=== PATIENT | female | born 1985 ===

== ENCOUNTER 2017-10-06 11:15 | Emergency (ER) | payer OTHER ==
[2017-10-06 11:19] VITALS: BMI 26.4
[2017-10-06 11:21] VITALS: RESP 16; TEMP 98.5; O2SAT 98
--- NOTE | 2017-10-06 11:49 | ED PDOC ---
HPI: Skin/Bite Injury Time Seen by Provider: 10/06/17 11:29 Chief Complaint (Nursing): Abnormal Skin Integrity Chief Complaint (Provider): Rash on the right History Per: Patient History/Exam Limitations: no limitations Onset/Duration Of Symptoms: Days Current Symptoms Are (Timing): Still Present Quality Of Symptoms: Itching Severity: Moderate Additional Complaint(s): 31 yo female with no medical problems present to ER for erythematous rash on the left upper arm x 3 days. PT states it is very itchy. Pt denies fever/ chills. Pt also reports rash on both feet which she has been using a topical antifungal cream but states it continues to come and go. Past Medical History Reviewed: Historical Data, Nursing Documentation, Vital Signs Vital Signs: Last Vital Signs Temp 98.5 F 10/06/17 11:19 Pulse 73 10/06/17 11:19 Resp 16 10/06/17 11:19 BP 102/69 10/06/17 11:19 Pulse Ox 98 10/06/17 11:19 - Medical History PMH: No Chronic Diseases - Surgical History Surgical History: No Surg Hx - Family History Family History: States: Unknown Family Hx - Living Arrangements Living Arrangements: With Family - Social History Current smoker - smoking cessation education provided: No - Immunization History Hx Tetanus Toxoid Vaccination: No Hx Influenza Vaccination: No Hx Pneumococcal Vaccination: No - Home Medications Home Medications: Ambulatory Orders Medication Instructions Recorded Fluconazole [Diflucan] 150 mg PO ONCE #2 tab 10/06/17 Hydrocortisone 1% Cream [Cortizone 30 applic TOP BID #1 tube 10/06/17 1% Cream] - Allergies Allergies/Adverse Reactions: Allergies Allergy/AdvReac Type Severity Reaction Status Date / Time No Known Allergies Allergy Verified 10/06/17 11:32 Review of Systems ROS Statement: Except As Marked, All Systems Reviewed And Found Negative Constitutional: Negative for: Fever, Chills Skin: Positive for: Rash Physical Exam - Reviewed Nursing Documentation Reviewed: Yes Vital Signs Reviewed: Yes - Physical Exam Appears: Positive for: Well, Non-toxic, No Acute Distress Head Exam: Positive for: ATRAUMATIC, NORMAL INSPECTION, NORMOCEPHALIC Skin: Positive for: Warm. Negative for: Normal Color (1: Erythematous blanching rash on the right uppe arm 2: dry cracked erythemaotous skin on bilateral feet and between dows with fissues ) Eye Exam: Positive for: Normal appearance ENT: Positive for: Normal ENT Inspection Neck: Positive for: Normal, Painless ROM Cardiovascular/Chest: Positive for: Regular Rate, Rhythm Respiratory: Positive for: Normal Breath Sounds. Negative for: Accessory Muscle Use, Respiratory Distress Back: Positive for: Normal Inspection Extremity: Positive for: Normal ROM Neurologic/Psych: Positive for: Alert, Oriented - ECG O2 Sat by Pulse Oximetry: 98 Medical Decision Making Medical Decision Making: Discussed oral medications for fungal rash on feels. PT reports using the cream twice a day for 1 month without significant improvement. Also discussed follow-up with dermatology for both rashes if they do not improve. Disposition - Clinical Impression Clinical Impression: Dermatitis, Athletes foot Counseled Patient/Family Regarding: Diagnosis, Need For Followup, Rx Given - Disposition Disposition: Routine/Home Disposition Time: 11:48 Condition: STABLE Prescriptions: Fluconazole [Diflucan] 150 mg PO ONCE #2 tab Hydrocortisone 1% Cream [Cortizone 1% Cream] 30 applic TOP BID #1 tube Instructions: Athlete's Foot
[2017-10-06 12:11] VITALS: BP 122/78; PULSE 76
== END 2017-10-06 12:09 | disposition home or self-care (01) ==
LOC: H.ER 11:15
DX: L30.9 Dermatitis, unspecified (principal); B35.3 Tinea pedis

== ENCOUNTER 2018-05-26 08:25 | Emergency (ER) | payer OTHER ==
[2018-05-26 08:25] VITALS: BMI 26.4
[2018-05-26 08:28] VITALS: TEMP 98.5; O2SAT 100
--- NOTE | 2018-05-26 10:35 | ED PDOC ---
HPI: Abdomen Time Seen by Provider: 05/26/18 09:00 Chief Complaint (Nursing): Abdominal Pain Chief Complaint (Provider): Abdominal Pain History Per: Patient History/Exam Limitations: no limitations Onset/Duration Of Symptoms: Days (3x) Current Symptoms Are (Timing): Still Present Location Of Pain/Discomfort: Suprapubic Quality Of Discomfort: "Pain" Associated Symptoms: denies: Fever, Vomiting, Diarrhea Additional Complaint(s): 32 year old female presents to the ED for an evaluation of left-sided suprapubic pain onset for 3 days. pt is (1 miscarraige) Patient had her last period on March 23 and she is currently 7 weeks . Otherwise, patient denies vomiting, diarrhea, fever, dysuria or vaginal bleeding. PMD: no family provider Abnormal Vaginal Bleeding: No Last Menstral Period: 03/23/18 : 4 Para: 2 Miscarriage: 1 Past Medical History Reviewed: Historical Data, Nursing Documentation, Vital Signs Vital Signs: Last Vital Signs Temp 98.5 F 05/26/18 08:27 Pulse 80 05/26/18 08:27 Resp 18 05/26/18 08:27 BP 123/72 05/26/18 08:27 Pulse Ox 100 05/26/18 08:27 - Medical History PMH: No Chronic Diseases - Surgical History Surgical History: No Surg Hx - Family History Family History: States: Unknown Family Hx - Social History Current smoker - smoking cessation education provided: No Alcohol: None Drugs: Denies - Immunization History Hx Tetanus Toxoid Vaccination: No Hx Influenza Vaccination: No Hx Pneumococcal Vaccination: No - Home Medications Home Medications: Ambulatory Orders Medication Instructions Recorded Fluconazole [Diflucan] 150 mg PO ONCE #2 tab 10/06/17 RX: Hydrocortisone 1% Cream 30 applic TOP BID #1 tube 10/06/17 [Cortizone 1% Cream] - Allergies Allergies/Adverse Reactions: Allergies Allergy/AdvReac Type Severity Reaction Status Date / Time No Known Allergies Allergy Verified 10/06/17 11:32 Review of Systems ROS Statement: Except As Marked, All Systems Reviewed And Found Negative Constitutional: Negative for: Fever, Chills Gastrointestinal: Positive for: Abdominal Pain. Negative for: Nausea, Vomiting, Diarrhea Genitourinary Female: Negative for: Dysuria, Vaginal Bleeding Physical Exam - Reviewed Nursing Documentation Reviewed: Yes Vital Signs Reviewed: Yes - Physical Exam Appears: Positive for: Well, Non-toxic, No Acute Distress Head Exam: Positive for: ATRAUMATIC, NORMAL INSPECTION, NORMOCEPHALIC Skin: Positive for: Normal Color, Warm, Dry Eye Exam: Positive for: EOMI, Normal appearance, PERRL ENT: Positive for: Normal ENT Inspection Neck: Positive for: Normal, Painless ROM, Supple Cardiovascular/Chest: Positive for: Regular Rate, Rhythm. Negative for: Murmur Respiratory: Positive for: Normal Breath Sounds. Negative for: Decreased Breath Sounds, Respiratory Distress Gastrointestinal/Abdominal: Positive for: Tenderness (mild left side suprapubic ) Back: Positive for: Normal Inspection Extremity: Positive for: Normal ROM. Negative for: Tenderness, Pedal Edema, Deformity Neurologic/Psych: Positive for: Alert, Oriented (x3). Negative for: Mo tor/Sensory Deficits - Laboratory Results Result Diagrams: 05/26/18 11:14 05/26/18 11:14 - ECG O2 Sat by Pulse Oximetry: 100 (RA) Pulse Ox Interpretation: Normal Medical Decision Making Medical Decision Making: Time: 1021 Impression: Abdominal Pain/pelvic pain in preganncy, rule out UTI, ectopic Plan: --BBK type and screen --Beta-HCG, Quantitative --CMP --CBC w/ differential --Urine C&S --Urinalysis --Reevaluation 1201 PROCEDURE: First trimester ultrasound HISTORY: left sided pelvic pain COMPARISON: None TECHNIQUE: Standard protocol for this study/examination. FINDINGS: LMP: 04/04/2018 Prior examinations from the current : TECHNIQUE: Real-time 2D imaging, duplex and color Doppler. FINDINGS: Cardiac activity: Present Rate: 165 BPM Measurements: [place] [employer] rump length: 1.72 cm Gestational age based on CRL 8 weeks 1 day Gestational age 7 weeks 3 days based on gestational sac measurement 2.66 cm Gestational age derived from LMP: 7 weeks 3 days AJ based on LMP: 01/09/2019 AJ based on biometry: 01/06/2019 Gestational concordance documented Yolk sac identified Cervix: No Cervical abnormalities: Negative examination for cervical dilatation or effacement. Closed cervix measuring 5.16 cm Subchorionic hemorrhage: None UTERUS: 8.5 x 6.5 x 10.6 cm. ADNEXA: Right: 2 x 2.9 x 3.1 cm. Cyst measures 2 x 2.7 cm normal Doppler arterial waveform documented. Left: 2.3 x 2.7 x 3.3 cm. Normal Doppler arterial waveform documented Fluid in the cul-de-sac: None IMPRESSION: 7 weeks 6 days live intrauterine gestation. Gestational concordance documented. Patients hematology presents she is slightly anemia, BUN and AST is elevated. She is Rh + instructed her to take vitamins with iron pt has no primary early childhood educator aide , will refer her Patient will be discharged home. states she feels improved at this time. Counseling was provided and all questions were answered regarding diagnosis and need for follow up with gynecology clinic. There is agreement to discharge plan. Return if symptoms persist or worsen. Scribe Attestation: Documented by Wood Akins, acting as a scribe for Kelsi Baldwin MD. Provider Scribe Attestation: All medical record entries made by the Scribe were at my direction and personally dictated by me. I have reviewed the chart and agree that the record accurately reflects my personal performance of the history, physical exam, medical decision making, and the department course for this patient. I have also personally directed, reviewed, and agree with the discharge instructions and disposition. Disposition - Clinical Impression Clinical Impression: Pelvic pain affecting - Patient ED Disposition Is Patient to be Admitted: No Counseled Patient/Family Regarding: Studies Performed, Diagnosis, Need For Followup - Disposition Referrals: [facility] [Outside] [facility] [Outside] Disposition: Routine/Home Disposition Time: 12:15 Condition: IMPROVED Additional Instructions: follow up with the PRODUCTION CLERKS SUPERVISOR in 2 days take vitamins daily return to the ED with any worsening or concerning symptoms Instructions: Round Ligament Pain Forms: [employer] (Slovenian)
[2018-05-26 11:26] LABS: BASO # 0.1 K/uL (0.0-0.2); BASO % 1.3 % (0.0-2.0); EOS # 0.2 K/uL (0.0-0.7); EOS % 2.6 % (0.0-4.0); HEMOGLOBIN 11.3 g/dL (12.0-16.0); LYMPH # 2.2 K/uL (1.0-4.3); MEAN CELL VOLUME 77.6 fl (81.0-99.0); MEAN CORPUSCULAR HGB CONC 32.3 g/dL (33.0-37.0); MEAN PLATELET VOLUME 8.2 fl (7.2-11.7); MONO # 0.7 K/uL (0.0-0.8); MONO % 9.4 % (0.0-10.0); NEUT # 4.2 K/uL (1.8-7.0); NEUT % 56.7 % (50.0-75.0); NRBC % 0.1 % (0.0-0.0); RBC 4.53 Mil/uL (3.80-5.20); RED CELL DISTRIBUTION WIDTH 16.3 % (11.5-14.5); WHITE BLOOD COUNT 7.4 K/uL (4.8-10.8)
[2018-05-26 11:33] LABS: ALB/GLOB RATIO 1.1 (1.0-2.1); ALT/SGPT 21 U/L (9-52); AST/SGOT 42 U/L (14-36); BLOOD UREA NITROGEN 18 mg/dl (7-17); CALCIUM 9.1 mg/dL (8.4-10.2); GFR NON-AFRICAN AMERICAN > 60
[2018-05-26 11:42] LABS: SQUAMOUS EPITHIAL 14 /hpf (0-5); URINE BACTERIA RARE (<OCC); URINE BILIRUBIN NEGATIVE (NEGATIVE); URINE BLOOD NEGATIVE (NEGATIVE); URINE CLARITY CLOUDY (Clear); URINE COLOR YELLOW (YELLOW); URINE GLUCOSE (UA) NEG (NEGATIVE); URINE LEUKOCYTE ESTERASE NEG Leu/uL (Negative); URINE PROTEIN NEGATIVE (NEGATIVE); URINE UROBILINOGEN 0.2-1.0 mg/dL (0.2-1.0)
--- NOTE | 2018-05-26 12:04 | US ---
Date of service: 05/26/2018 PROCEDURE: First trimester ultrasound HISTORY: left sided pelvic pain COMPARISON: None TECHNIQUE: Standard protocol for this study/examination. FINDINGS: LMP: 04/04/2018 Prior examinations from the current : TECHNIQUE: Real-time 2D imaging, duplex and color Doppler. FINDINGS: Cardiac activity: Present Rate: 165 BPM Measurements: [place] rump length: 1.72 cm Gestational age based on CRL 8 weeks 1 day Gestational age 7 weeks 3 days based on gestational sac measurement 2.66 cm Gestational age derived from LMP: 7 weeks 3 days AJ based on LMP: 01/09/2019 AJ based on biometry: 01/06/2019 Gestational concordance documented Yolk sac identified Cervix: No Cervical abnormalities: Negative examination for cervical dilatation or effacement. Closed cervix measuring 5.16 cm Subchorionic hemorrhage: None UTERUS: 8.5 x 6.5 x 10.6 cm. ADNEXA: Right: 2 x 2.9 x 3.1 cm. Cyst measures 2 x 2.7 cm normal Doppler arterial waveform documented. Left: 2.3 x 2.7 x 3.3 cm. Normal Doppler arterial waveform documented Fluid in the cul-de-sac: None IMPRESSION: 7 weeks 6 days live intrauterine gestation. Gestational concordance documented.
[2018-05-26 12:44] VITALS: BP 110/70; PULSE 82; RESP 15
== END 2018-05-26 12:53 | disposition home or self-care (01) ==
LOC: H.ER 08:25
DX: O26.899 Other specified pregnancy related conditions, unspecified trimester (principal); D64.9 Anemia, unspecified

== ENCOUNTER 2018-06-18 08:29 | Observation (INO) | payer OTHER, SELFPAY ==
[2018-06-18 08:37] VITALS: BMI 28.5
[2018-06-18] MEDS ORDERED: Sodium Chloride 0.9% 1,000 ML IV STA (09:01)
--- NOTE | 2018-06-18 09:11 | ED PDOC ---
History of Present Illness History of Present Illness: 32yo female, EGA of 10 weeks, A1, comes to ER reporting fever, vomiting, and bodyaches x 1 day. She also reports associated fatigue, malaise, cough, diarrhea, and lower back pain. Patient denies any urinary symptoms. No additional medical complaints. PMD: None HPI: Influenza Time Seen by Provider: 06/18/18 08:48 Chief Complaint: Flu-like Symptoms Chief Complaint (Provider): Flu History Per: Patient Exam Limitations: no limitations Have you had recent travel within the past 21 days to any of: No Symptoms include: fever, bodyaches, sore throat, cough Sick Contacts (Context): None Hx Influenza Vaccination: No Risk factors for flu complications: Yes: Past Medical History Reviewed: Historical Data, Nursing Documentation, Vital Signs Vital Signs: Last Vital Signs Temp 102 F H 06/18/18 08:36 Pulse 140 H 06/18/18 08:36 Resp 18 06/18/18 08:36 BP 124/75 06/18/18 08:36 Pulse Ox 99 06/18/18 08:36 - Medical History PMH: No Chronic Diseases - Surgical History Surgical History: No Surg Hx - Family History Family History: States: No Known Family Hx - Immunization History Hx Tetanus Toxoid Vaccination: No Hx Influenza Vaccination: No Hx Pneumococcal Vaccination: No - Home Medications Home Medications: Ambulatory Orders Medication Instructions Recorded Ferrous Sulfate [Feosol] 325 mg PO DAILY 06/18/18 Acetaminophen [Tylenol 325mg tab] 650 mg PO Q6 PRN tab 06/19/18 Ferrous Sulfate [Feosol] 325 mg PO DAILY tab 06/19/18 Oseltamivir Cap [Tamiflu Cap] 75 mg PO BID #7 capsule 06/19/18 Multivit/Folic Acid/I 1 tab PO DAILY #30 tab 06/19/18 [] - Allergies Allergies/Adverse Reactions: Allergies Allergy/AdvReac Type Severity Reaction Status Date / Time No Known Allergies Allergy Verified 10/06/17 11:32 Review of Systems ROS Statement: Except As Marked, All Systems Reviewed And Found Negative Constitutional: Positive for: Fever, Chills, Malaise Respiratory: Positive for: Cough. Negative for: Sputum Gastrointestinal: Positive for: Vomiting, Abdominal Pain, Diarrhea Musculoskeletal: Positive for: Back Pain Neurological: Negative for: Weakness, Numbness Physical Exam - Reviewed Nursing Documentation Reviewed: Yes Vital Signs Reviewed: Yes (febrile) - Physical Exam Appears: Positive for: Non-toxic, Uncomfortable Head Exam: Positive for: ATRAUMATIC, NORMAL INSPECTION, NORMOCEPHALIC Skin: Positive for: Normal Color, Warm, Dry Eye Exam: Positive for: EOMI, Normal appearance, PERRL ENT: Negative for: Pharyngeal Erythema, Tonsillar Exudate, Tonsillar Swelling Neck: Positive for: Normal, Painless ROM, Supple Cardiovascular/Chest: Positive for: Regular Rate, Rhythm, Tachycardia Respiratory: Positive for: CNT, Normal Breath Sounds Gastrointestinal/Abdominal: Positive for: Soft, Tenderness (diffuse tenderness) Back: Positive for: Other (para-lumbar tenderness). Negative for: L CVA Tenderness, R CVA Tenderness Extremity: Positive for: Normal ROM. Negative for: Pedal Edema Neurological/Psych: Positive for: Awake, Alert, Normal Tone Medical Decision Making Medical Decision Making: Impression: Fever, bodyaches, malaise, cough and abdominal pain Differential: Influenza, gastroenteritis, less likely UTI Plan: -- UDip -- IV fluids -- Labs -- Tylenol 650mg PO -- Zofran 4mg IV -- Rapid flu 0951 Patient flu A positive; first dose tamiflu given. 1230 Labs reviewed, patient with hypokalemia, K-Dur 30meq PO ordered 1430 Patient with persistent tachycardia, despite fluids and resolution of fever. Case discussed with Dr. Lofton, patient to be admitted for observation. Plan of admission discussed with patient, who is agreeable. Scribe Attestation: Documented by Vivian Escamilla, acting as a scribe for Kennedi Munson MD. Provider Scribe Attestation: All medical record entries made by the Scribe were at my direction and personally dictated by me. I have reviewed the chart and agree that the record accurately reflects my personal performance of the history, physical exam, medical decision making, and the department course for this patient. I have also personally directed, reviewed, and agree with the discharge instructions and disposition. - Laboratory Results Result Diagrams: 06/19/18 05:10 06/19/18 05:10 - ECG O2 Sat by Pulse Oximetry: 99 Disposition - Clinical Impression Clinical Impression: Influenza, - Patient ED Disposition Is Patient to be Admitted: Yes Discussed With DrHarshal: Vicente Lofton Doctor Will See Patient In The: Hospital Counseled Patient/Family Regarding: Studies Performed, Diagnosis - Disposition Disposition Time: 14:41 Condition: FAIR - Pt Status Changed To: Hospital Disposition Of: Observation - POA Present On Arrival: None
[2018-06-18 09:36] LABS: BASO % 0.5 % (0.0-2.0); EOS % 0.4 % (0.0-4.0); HEMOGLOBIN 11.3 g/dL (12.0-16.0); LYMPH # 0.8 K/uL (1.0-4.3); LYMPH % 9.3 % (20.0-40.0); MEAN CELL VOLUME 75.9 fl (81.0-99.0); MEAN CORPUSCULAR HGB CONC 32.9 g/dL (33.0-37.0); MEAN PLATELET VOLUME 7.4 fl (7.2-11.7); MONO # 0.5 K/uL (0.0-0.8); MONO % 6.2 % (0.0-10.0); NEUT # 7.1 K/uL (1.8-7.0); NEUT % 83.6 % (50.0-75.0); NRBC % 0.1 % (0.0-0.0); PLATELET COUNT 394 K/uL (130-400); RBC 4.53 Mil/uL (3.80-5.20); RED CELL DISTRIBUTION WIDTH 16.8 % (11.5-14.5); WHITE BLOOD COUNT 8.5 K/uL (4.8-10.8)
[2018-06-18 09:51] LABS: ALB/GLOB RATIO 1.1 (1.0-2.1); ALBUMIN 4.1 g/dL (3.5-5.0); ALT/SGPT 23 U/L (9-52); AST/SGOT 22 U/L (14-36); BLOOD UREA NITROGEN 11 mg/dl (7-17); GFR NON-AFRICAN AMERICAN > 60; LIPASE 59 U/L (23-300)
[2018-06-18] MEDS ORDERED: Dextrose 5%/0.45% NS 1,000 ML IV SCH (10:45)
[2018-06-18 12:15] LABS: BANDS 4 % (0-2); BASOPHIL 1 % (0-2); LYMPHOCYTE 10 % (20-50); MONOCYTE 5 % (0-10); NEUTROPHIL 80 % (42-75); TOTAL CELLS COUNTED 100
[2018-06-18 12:17] LABS: ANISOCYTOSIS SLIGHT; HYPOCHROMIC SLIGHT; MICROCYTOSIS SLIGHT; PLATELET ESTIMATE NORMAL (NORMAL); TOXIC GRANULATION PRESENT
[2018-06-18] MEDS ORDERED: Potassium Chloride 20 mEq ER Tab PO ONE ×2 (12:37→14:12)
--- NOTE | 2018-06-18 15:19 | CP.PCM.HP ---
<Aldo Triana - Last Filed: 06/18/18 15:39> History of Present Illness - History of Present Illness History of Present Illness: 32 yo F at 11 weeks GA with no sig pmhx presents to the ED with Fever. Since yesterday morning, she has experienced fever measuring 104. Associated with vomiting x 4 (clear, nonbloody), complete body aches, diarrhea (x1 this AM), Rhinorrhea: clear, nonproductive cough. Sick contact: son, who has been unwell for 1 week. No recent travel. She tried taking advil for fever. Denies: vaginal bleed, contractions, loss of fluid, movement, dysuria, or increased urinary frequency. PMD: none CEO & FOUNDER: none Surg: none Soc: Denies smoking, alcohol, illicit drugs Famhx: DM, HTN Rx: Tylenol, PNV NKDA Present on Admission - Present on Admission Any Indicators Present on Admission: No History of Uncontrolled Diabetes: No Urinary Catheter: No Review of Systems - Constitutional Constitutional: Fever, Weakness - Cardiovascular Cardiovascular: absent: Chest Pain - Respiratory Respiratory: Cough - Genitourinary Genitourinary: absent: Dysuria, Hematuria, Urinary Frequency - Reproductive: Female Reproductive:Female: Amenorrhea - Musculoskeletal Additional comments: generalized body aches - Neurological Neurological: absent: Abnormal Gait Past Patient History - Past Social History Smoking Status: Never Smoked Alcohol: None Drugs: Denies Home Situation {Lives}: With Family - GENITOURINARY/GYNECOLOGICAL LMP:: 04/02/2019 : 4 Para: 2 Termination of : 1 (SAB) - PSYCHIATRIC Hx Substance Use: No - SURGICAL HISTORY Hx Surgeries: No - ANESTHESIA Hx Anesthesia: No Meds Allergies/Adverse Reactions: Allergies Allergy/AdvReac Type Severity Reaction Status Date / Time No Known Allergies Allergy Verified 10/06/17 11:32 Physical Exam - Constitutional Appears: No Acute Distress - Eye Exam Eye Exam: EOMI - ENT Exam ENT Exam: Mucous Membranes Moist - Respiratory Exam Respiratory Exam: Clear to Auscultation Bilateral, NORMAL BREATHING PATTERN. absent: Wheezes - Cardiovascular Exam Cardiovascular Exam: Tachycardia, +S1, +S2 - GI/Abdominal Exam GI & Abdominal Exam: Normal Bowel Sounds, Soft. absent: Tenderness - Neurological Exam Neurological exam: Alert, CN II-XII Intact, Oriented x3 - Psychiatric Exam Psychiatric exam: Normal Affect, Normal Mood Results - Vital Signs Recent Vital Signs: Last Vital Signs Temp 99.5 F 06/18/18 14:32 Pulse 123 H 06/18/18 14:32 Resp 18 06/18/18 14:32 BP 110/63 06/18/18 14:32 Pulse Ox 99 06/18/18 14:49 - Labs Result Diagrams: 06/18/18 09:15 06/18/18 09:15 Labs: Laboratory Results - last 24 hr 06/18/18 06/18/18 06/18/18 09:15 09:15 09:15 WBC 8.5 RBC 4.53 Hgb 11.3 L Hct 34.4 MCV 75.9 L MCH 25.0 L MCHC 32.9 L RDW 16.8 H Plt Count 394 D MPV 7.4 Neut % (Auto) 83.6 H Lymph % (Auto) 9.3 L [place] % (Auto) 6.2 Eos % (Auto) 0.4 Baso % (Auto) 0.5 Neut # (Auto) 7.1 H Lymph # (Auto) 0.8 L [place] # (Auto) 0.5 Eos # (Auto) 0.0 Baso # (Auto) 0.0 Neutrophils % (Manual) 80 H Band Neutrophils % 4 H Lymphocytes % (Manual) 10 L Monocytes % (Manual) 5 Basophils % (Manual) 1 Toxic Granulation Present Platelet Estimate Normal Hypochromasia (manual) Slight Anisocytosis (manual) Slight Microcytosis (manual) Slight Sodium 136 Potassium 3.5 L Chloride 103 Carbon Dioxide 21 L Anion Gap 16 BUN 11 Creatinine 0.5 L Est GFR ( Amer) > 60 Est GFR (Non-Af Amer) > 60 Random Glucose 103 Calcium 9.0 Total Bilirubin 0.4 AST 22 ALT 23 Alkaline Phosphatase 69 Total Protein 7.8 Albumin 4.1 Globulin 3.7 Albumin/Globulin Ratio 1.1 Lipase 59 Influenza Typ A,B (EIA) Pos for influenza a H Assessment & Plan - Assessment and Plan (Free Text) Assessment: 32 yo F at 11 weeks GA with no sig pmhx presents to the ED with Fever. Plan: Influenza A -Admit to tele -monitoring and evaluation advisor -IVF: LR 125 mls/hr -Anti pyretics: Tylenol prn -PNV -OB: Dr. Fishman: further recs appreciated -Continue Tamiflu 75 mg BID total of 5 days -Monitor vitals -f/u AM labs -11.0 weeks -OB: Dr. Fishman: further recs appreciated -f/u UA DVT Prophylaxis -SCD Case and plan d/w Dr. Rolly Triana MD PGY2 <Vicente Lofton D - Last Filed: 06/18/18 17:10> Results - Vital Signs Recent Vital Signs: Last Vital Signs Temp 101.6 F H 06/18/18 15:45 Pulse 129 H 06/18/18 15:41 Resp 18 06/18/18 15:41 BP 119/68 06/18/18 15:41 Pulse Ox 98 06/18/18 15:41 - Labs Result Diagrams: 06/18/18 09:15 06/18/18 09:15 Labs: Laboratory Results - last 24 hr 06/18/18 06/18/18 06/18/18 09:15 09:15 09:15 WBC 8.5 RBC 4.53 Hgb 11.3 L Hct 34.4 MCV 75.9 L MCH 25.0 L MCHC 32.9 L RDW 16.8 H Plt Count 394 D MPV 7.4 Neut % (Auto) 83.6 H Lymph % (Auto) 9.3 L [place] % (Auto) 6.2 Eos % (Auto) 0.4 Baso % (Auto) 0.5 Neut # (Auto) 7.1 H Lymph # (Auto) 0.8 L [place] # (Auto) 0.5 Eos # (Auto) 0.0 Baso # (Auto) 0.0 Neutrophils % (Manual) 80 H Band Neutrophils % 4 H Lymphocytes % (Manual) 10 L Monocytes % (Manual) 5 Basophils % (Manual) 1 Toxic Granulation Present Platelet Estimate Normal Hypochromasia (manual) Slight Anisocytosis (manual) Slight Microcytosis (manual) Slight Sodium 136 Potassium 3.5 L Chloride 103 Carbon Dioxide 21 L Anion Gap 16 BUN 11 Creatinine 0.5 L Est GFR ( Amer) > 60 Est GFR (Non-Af Amer) > 60 Random Glucose 103 Calcium 9.0 Total Bilirubin 0.4 AST 22 ALT 23 Alkaline Phosphatase 69 Total Protein 7.8 Albumin 4.1 Globulin 3.7 Albumin/Globulin Ratio 1.1 Lipase 59 Urine Color Urine Clarity Urine pH Ur Specific [place] Urine Protein Urine Glucose (UA) Urine Ketones Urine Blood Urine Nitrate Urine Bilirubin Urine Urobilinogen Ur Leukocyte Esterase Urine RBC (Auto) Urine Microscopic WBC Ur Squamous Epith Cells Urine Bacteria Influenza Typ A,B (EIA) Pos for influenza a H 06/18/18 16:10 WBC RBC Hgb Hct MCV MCH MCHC RDW Plt Count MPV Neut % (Auto) Lymph % (Auto) [place] % (Auto) Eos % (Auto) Baso % (Auto) Neut # (Auto) Lymph # (Auto) [place] # (Auto) Eos # (Auto) Baso # (Auto) Neutrophils % (Manual) Band Neutrophils % Lymphocytes % (Manual) Monocytes % (Manual) Basophils % (Manual) Toxic Granulation Platelet Estimate Hypochromasia (manual) Anisocytosis (manual) Microcytosis (manual) Sodium Potassium Chloride Carbon Dioxide Anion Gap BUN Creatinine Est GFR ( Amer) Est GFR (Non-Af Amer) Random Glucose Calcium Total Bilirubin AST ALT Alkaline Phosphatase Total Protein Albumin Globulin Albumin/Globulin Ratio Lipase Urine Color Yellow Urine Clarity Cloudy Urine pH 6.0 Ur Specific [place] 1.029 Urine Protein 100 Urine Glucose (UA) 50 Urine Ketones 80 Urine Blood Negative Urine Nitrate Negative Urine Bilirubin Negative Urine Urobilinogen 0.2-1.0 Ur Leukocyte Esterase Neg Urine RBC (Auto) 3 Urine Microscopic WBC 3 Ur Squamous Epith Cells 7 H Urine Bacteria Rare Influenza Typ A,B (EIA) Attending/Attestation - Attestation I have personally seen and examined this patient.: Yes I have fully participated in the care of the patient.: Yes I have reviewed all pertinent clinical information: Yes Notes (Text): 06/18/18 17:07 Patient seen and examined with resident. Case discussed and agreed with assessment and plan. Patient is a 32 yo female on her 10 weeks of gestation who manifested with URI symptoms and turned out positive influenza A. Patient placed on observation because of dehydration and tachycardia.
[2018-06-18 16:46] LABS: SQUAMOUS EPITHIAL 7 /hpf (0-5); URINE BACTERIA RARE (<OCC); URINE BILIRUBIN NEGATIVE (NEGATIVE); URINE BLOOD NEGATIVE (NEGATIVE); URINE CLARITY CLOUDY (Clear); URINE COLOR YELLOW (YELLOW); URINE GLUCOSE (UA) 50 mg/dL (NEGATIVE); URINE LEUKOCYTE ESTERASE NEG Leu/uL (Negative); URINE PROTEIN 100 mg/dL (NEGATIVE); URINE UROBILINOGEN 0.2-1.0 mg/dL (0.2-1.0)
[2018-06-18] MEDS: Lactated Ringer's 1,000 ML IV SCH (17:16)
[2018-06-19] MEDS: Lactated Ringer's 1,000 ML IV SCH ×2 (00:47→09:20)
[2018-06-19 05:47] LABS: BASO % 0.8 % (0.0-2.0); EOS # 0.1 K/uL (0.0-0.7); EOS % 1.4 % (0.0-4.0); HEMOGLOBIN 10.5 g/dL (12.0-16.0); LYMPH # 1.4 K/uL (1.0-4.3); LYMPH % 22.8 % (20.0-40.0); MEAN CELL VOLUME 76.8 fl (81.0-99.0); MEAN CORPUSCULAR HEMOGLOBIN 24.9 pg (27.0-31.0); MEAN CORPUSCULAR HGB CONC 32.4 g/dL (33.0-37.0); MEAN PLATELET VOLUME 7.4 fl (7.2-11.7); MONO # 0.6 K/uL (0.0-0.8); MONO % 10.3 % (0.0-10.0); NEUT # 4.1 K/uL (1.8-7.0); NEUT % 64.7 % (50.0-75.0); NRBC % 0.1 % (0.0-0.0); RBC 4.23 Mil/uL (3.80-5.20); RED CELL DISTRIBUTION WIDTH 17.2 % (11.5-14.5); WHITE BLOOD COUNT 6.3 K/uL (4.8-10.8)
[2018-06-19 05:59] LABS: BLOOD UREA NITROGEN 4 mg/dl (7-17); CALCIUM 8.5 mg/dL (8.4-10.2); GFR NON-AFRICAN AMERICAN > 60
[2018-06-19 06:24] VITALS: TEMP 97.6
[2018-06-19] MEDS ORDERED: Potassium Chloride 20 mEq ER Tab PO ONE (07:28)
[2018-06-19] MEDS ORDERED: Prenatal Multivit/Folic Acid/Iron Tab PO SCH (09:00)
[2018-06-19 09:53] VITALS: BP 103/65; PULSE 84; RESP 20
--- NOTE | 2018-06-19 10:21 | CP.PCM.DIS ---
Provider - Provider Date of Admission: 06/18/18 14:47 Attending physician: Vicente Lofton MD Consults: 06/18/18 15:38 SOFTWARE TEAM LEADER Consult Stat Comment: Consulting Provider: Henny Fishman Consulting Physician: Henny Fishman Reason for Consult: 11 wks with flu A pos Time Spent in preparation of Discharge (in minutes): 30 Hospital Course - Lab Results Lab Results: Most Recent Lab Values WBC 6.3 K/uL (4.8-10.8) 06/19/18 05:10 RBC 4.23 Mil/uL (3.80-5.20) 06/19/18 05:10 Hgb 10.5 g/dL (12.0-16.0) L 06/19/18 05:10 Hct 32.5 % (34.0-47.0) L 06/19/18 05:10 MCV 76.8 fl (81.0-99.0) L 06/19/18 05:10 MCH 24.9 pg (27.0-31.0) L 06/19/18 05:10 MCHC 32.4 g/dL (33.0-37.0) L 06/19/18 05:10 RDW 17.2 % (11.5-14.5) H 06/19/18 05:10 Plt Count 337 K/uL (130-400) 06/19/18 05:10 MPV 7.4 fl (7.2-11.7) 06/19/18 05:10 Neut % (Auto) 64.7 % (50.0-75.0) 06/19/18 05:10 Lymph % (Auto) 22.8 % (20.0-40.0) 06/19/18 05:10 Ramsey % (Auto) 10.3 % (0.0-10.0) H 06/19/18 05:10 Eos % (Auto) 1.4 % (0.0-4.0) 06/19/18 05:10 Baso % (Auto) 0.8 % (0.0-2.0) 06/19/18 05:10 Neut # (Auto) 4.1 K/uL (1.8-7.0) 06/19/18 05:10 Lymph # (Auto) 1.4 K/uL (1.0-4.3) 06/19/18 05:10 Ramsey # (Auto) 0.6 K/uL (0.0-0.8) 06/19/18 05:10 Eos # (Auto) 0.1 K/uL (0.0-0.7) 06/19/18 05:10 Baso # (Auto) 0.0 K/uL (0.0-0.2) 06/19/18 05:10 Neutrophils % (Manual) 80 % (42-75) H 06/18/18 09:15 Band Neutrophils % 4 % (0-2) H 06/18/18 09:15 Lymphocytes % (Manual) 10 % (20-50) L 06/18/18 09:15 Monocytes % (Manual) 5 % (0-10) 06/18/18 09:15 Basophils % (Manual) 1 % (0-2) 06/18/18 09:15 Toxic Granulation Present 06/18/18 09:15 Platelet Estimate Normal (NORMAL) 06/18/18 09:15 Hypochromasia (manual) Slight 06/18/18 09:15 Anisocytosis (manual) Slight 06/18/18 09:15 Microcytosis (manual) Slight 06/18/18 09:15 Sodium 138 mmol/l (132-148) 06/19/18 05:10 Potassium 3.5 MMOL/L (3.6-5.0) L 06/19/18 05:10 Chloride 108 mmol/L (98-107) H 06/19/18 05:10 Carbon Dioxide 21 mmol/L (22-30) L 06/19/18 05:10 Anion Gap 13 (10-20) 06/19/18 05:10 BUN 4 mg/dl (7-17) L 06/19/18 05:10 Creatinine 0.4 mg/dl (0.7-1.2) L 06/19/18 05:10 Est GFR ( Amer) > 60 06/19/18 05:10 Est GFR (Non-Af Amer) > 60 06/19/18 05:10 Random Glucose 87 mg/dL (65-105) 06/19/18 05:10 Calcium 8.5 mg/dL (8.4-10.2) 06/19/18 05:10 Total Bilirubin 0.4 mg/dl (0.2-1.3) 06/18/18 09:15 AST 22 U/L (14-36) 06/18/18 09:15 ALT 23 U/L (9-52) 06/18/18 09:15 Alkaline Phosphatase 69 U/L (38-126) 06/18/18 09:15 Total Protein 7.8 G/DL (6.3-8.2) 06/18/18 09:15 Albumin 4.1 g/dL (3.5-5.0) 06/18/18 09:15 Globulin 3.7 gm/dL (2.2-3.9) 06/18/18 09:15 Albumin/Globulin Ratio 1.1 (1.0-2.1) 06/18/18 09:15 Lipase 59 U/L (23-300) 06/18/18 09:15 Urine Color Yellow (YELLOW) 06/18/18 16:10 Urine Clarity Cloudy (Clear) 06/18/18 16:10 Urine pH 6.0 (5.0-8.0) 06/18/18 16:10 Ur Specific [place] 1.029 (1.003-1.030) 06/18/18 16:10 Urine Protein 100 mg/dL (NEGATIVE) 06/18/18 16:10 Urine Glucose (UA) 50 mg/dL (NEGATIVE) 06/18/18 16:10 Urine Ketones 80 mg/dL (NEGATIVE) 06/18/18 16:10 Urine Blood Negative (NEGATIVE) 06/18/18 16:10 Urine Nitrate Negative (NEGATIVE) 06/18/18 16:10 Urine Bilirubin Negative (NEGATIVE) 06/18/18 16:10 Urine Urobilinogen 0.2-1.0 mg/dL (0.2-1.0) 06/18/18 16:10 Ur Leukocyte Esterase Neg Vineet/uL (Negative) 06/18/18 16:10 Urine RBC (Auto) 3 /hpf (0-3) 06/18/18 16:10 Urine Microscopic WBC 3 /hpf (0-5) 06/18/18 16:10 Ur Squamous Epith Cells 7 /hpf (0-5) H 06/18/18 16:10 Urine Bacteria Rare (<OCC) 06/18/18 16:10 Influenza Typ A,B (EIA) Pos for influenza a (NEGATIVE) H 06/18/18 09:15 - Hospital Course Hospital Course: 32 yo F at 11 weeks GA with no sig pmhx presents to the ED with Fever. Influenza A -IVF: LR 125 mls/hr -Anti pyretics: Tylenol prn -OB: Dr. Fishman: -Continue Tamiflu 75 mg BID total of 5 days -11.0 weeks -OB: Dr. Fishman: further recs appreciated -PNV Discharge home with ER precautions, tamiflu for completion of 5 days and vitamins Case and plan d/w Dr. Dav Triana MD PGY2 Discharge Exam - Head Exam Head Exam: ATRAUMATIC, NORMAL INSPECTION, NORMOCEPHALIC - Eye Exam Eye Exam: EOMI - Respiratory Exam Respiratory Exam: Clear to PA & Lateral, NORMAL BREATHING PATTERN. absent: Wheezes - Cardiovascular Exam Cardiovascular Exam: REGULAR RHYTHM, +S1, +S2 - GI/Abdominal Exam GI & Abdominal Exam: Normal Bowel Sounds, Soft. absent: Tenderness - Back Exam Back exam: absent: CVA tenderness (L), CVA tenderness (R) - Neurological Exam Neurological exam: Alert, CN II-XII Intact, Oriented x3 - Psychiatric Exam Psychiatric exam: Normal Affect, Normal Mood Discharge Plan - Discharge Medications Prescriptions: Oseltamivir Cap [Tamiflu Cap] 75 mg PO BID #7 capsule Multivit/Folic Acid/I [] 1 tab PO DAILY #30 tab - Follow Up Plan Condition: STABLE Disposition: HOME/ ROUTINE Instructions: Medications and , Flu, Adult (DC), Avoiding Infections in Additional Instructions: KRISTEN GATES, thank you for letting us take care of you today. Your provider was Kennedi Munson MD and you were treated for FLU LIKE SYMPTOMS. The emergency medical care you received today was directed at your acute symptoms. If you were prescribed any medication, please fill it and take as directed. It may take several days for your symptoms to resolve. Return to the Emergency Department if your symptoms worsen, do not improve, or if you have any other problems. Please contact your doctor or call one of the physicians/clinics you have been referred to that are listed on the Patient Visit Information form that is included in your discharge packet. Bring any paperwork you were given at discharge with you along with any medications you are taking to your follow up visit. Our treatment cannot replace ongoing medical care by a primary care provider outside of the emergency department. Thank you for allowing the [facility] team to be part of your care today. If you had an X-Ray or CT scan: A Radiologist will review the ED reading if any change in treatment is needed we will contact you. If you had a blood, urine, or wound culture: It will take several days for the results, if any change in treatment is needed we will contact you. If you had an STI test: It will take 48 hours for the results. Please call after 1 week if you have not heard back. Referrals: [facility] [Outside]
[2018-06-21 17:00] VITALS: O2SAT 99
== END 2018-06-19 15:00 | disposition home or self-care (01) ==
LOC: H.ER 08:29 → H.ERHOLD 14:47 → H.TEL 23:09
DX: O99.511 Diseases of the respiratory system complicating pregnancy, first trimester (principal); J10.1 Influenza due to other identified influenza virus with other respiratory manifestations; O99.281 Endocrine, nutritional and metabolic diseases complicating pregnancy, first trimester; E87.6 Hypokalemia; O99.011 Anemia complicating pregnancy, first trimester; O21.9 Vomiting of pregnancy, unspecified; Z3A.11 11 weeks gestation of pregnancy
CPT/HCPCS: 36415; 80048; 80053; 81003; 81025; 83690; 85025; 87804; 96374; 99285; G0378; J2405; J7030; J7042; J7120